=== PATIENT | female | born 1960 | race Caucasian/White ===

== ENCOUNTER 2018-08-09 05:58 | Emergency (ER) | payer OTHER ==
[~2018-08-09] VITALS: Ht 172.7 cm; Wt 57.6 kg
[~2018-08-09 05:58] MED LIST: ALPR0.5T PO; BISA5TAB4 PO; CELE200C PO; ESCITALOPRAM OXA5 M1 PO; FERR325T72 PO; FOLI1TAB16 PO; LAMO150T2 PO; LEVO250T7 PO; MULT1TAB90 PO; THIA100T22 PO; WARF10TA45 MC
--- NOTE | 2018-08-09 06:19 | PHYS DOC ---
Past Medical History Past Medical History: Alcoholism, Depression Additional Past Medical Histor: chronic pain Alcohol Use: Heavy Adult General Chief Complaint Chief Complaint: ALCOHOL INTOXICATION HPI HPI Patient is a 57-year-old female who arrives in the emergency department via EMS. She states that she lives alone, and went to get up to go to the bathroom but her left knee gave out. She gives conflicting answers if she fell or not and m ight of hit her head, she is uncertain. She appears intoxicated, smells of alcohol, and admits to drinking a fifth of vodka daily. She also takes pain medicine and possibly benzodiazepine as well, chronically. She denies any other pain at this time. She states that when her left knee gave out, she pushed her medical alert button, and EMS arrived, bringing the patient to the emergency department. The patient states that she just feels weak all over. She is unable to verbalize any other complaint. She was reportedly combative with EMS, and is somewhat labile at this time, but overall, cooperative. She does have wrappings on her legs bilaterally, there is a small wound on her right heel which she states is followed at the [place] [facility]. She is unable to provide any other meaningful history at this time. Review of Systems Review of Systems Constitutional: Denies fever or chills [] Eyes: Denies change in visual acuity, redness, or eye pain [] HENT: Denies nasal congestion or sore throat [] Respiratory: Denies cough or shortness of breath [] Cardiovascular: The patient denies any shortness of breath, chest pain, palpitations, or orthopnea[] GI: Denies abdominal pain, nausea, vomiting, bloody stools or diarrhea [] : Denies dysuria or hematuria [] Musculoskeletal: Denies back pain or joint pain [] Integument: Denies rash or skin lesions, other than as noted in HPI [] Neurologic: Denies headache, focal weakness or sensory changes [] Endocrine: Denies polyuria or polydipsia [] All other systems were reviewed and found to be within normal limits, except as documented in this note. Current Medications Current Medications Current Medications Medications (Trade) Dose Ordered Sig/Nilson Start Time Stop Time Status Last Admin Dose Admin Sodium Chloride 1,000 ml @ 100 mls/hr Q10H 08/09/18 06:30 08/09/18 16:29 08/09/18 07:32 100 MLS/HR Allergies Allergies Allergies Coded Allergies Type Severity Reaction Last Updated Verified disulfiram Allergy Intermediate 12/14/17 Yes Physical Exam Physical Exam PHYSICAL EXAM: CONSTITUTIONAL: Well developed, well nourished HEAD: normocephalic, atraumatic EENT: PERRL, EOMI. Conjunctivae normal color, sclerae non-icteric; moist mucous membranes. NECK: Supple, non-tender; no meningismus. LUNGS: Lungs CTA, breathing even and unlabored. Normal air movement. HEART: Regular rate and rhythm, no murmur CHEST: No deformity; non-tender ABDOMEN: The abdomen is soft, and non-tender, no masses or bruits. EXTREM: Normal ROM; no deformity, no calf tenderness. Normal pulses palpable in all extremities. There is no pedal edema. SKIN: No rash; no diaphoresis. There is a small wound on the medial aspect of the right heel, which is well dressed. There is no significant surrounding warmth or erythema. NEURO: Alert; mildly impaired cognition and mildly slurred speech, consistent with alcohol intoxication, CN's grossly intact; strength grossly intact without focal deficit. Specifically, Range of motion in the lower extremities bilaterally is normal. BACK: No CVA TTP. Current Patient Data Vital Signs Vital Signs Date Time Temp Pulse Resp B/P (MAP) Pulse Ox O2 Delivery O2 Flow Rate FiO2 08/09/18 06:00 98.8 81 20 128/84 (99) 97 Room Air 98.8 Lab Values Laboratory Tests Test 08/09/18 07:15 08/09/18 07:42 White Blood Count 8.5 x10^3/uL (4.0-11.0) Red Blood Count 5.17 x10^6/uL (3.50-5.40) Hemoglobin 15.1 g/dL (12.0-15.5) Hematocrit 46.9 % (36.0-47.0) Mean Corpuscular Volume 91 fL (79-100) Mean Corpuscular Hemoglobin 29 pg (25-35) Mean Corpuscular Hemoglobin Concent 32 g/dL (31-37) Red Cell Distribution Width 15.2 % (11.5-14.5) H Platelet Count 299 x10^3/uL (140-400) Neutrophils (%) (Auto) 59 % (31-73) Lymphocytes (%) (Auto) 35 % (24-48) Monocytes (%) (Auto) 5 % (0-9) Eosinophils (%) (Auto) 0 % (0-3) Basophils (%) (Auto) 0 % (0-3) Neutrophils # (Auto) 5.0 x10^3uL (1.8-7.7) Lymphocytes # (Auto) 3.0 x10^3/uL (1.0-4.8) Monocytes # (Auto) 0.5 x10^3/uL (0.0-1.1) Eosinophils # (Auto) 0.0 x10^3/uL (0.0-0.7) Basophils # (Auto) 0.0 x10^3/uL (0.0-0.2) Prothrombin Time 14.1 SEC (11.7-14.0) H Prothrombin Time INR 1.1 (0.8-1.1) Sodium Level 144 mmol/L (136-145) Potassium Level 4.0 mmol/L (3.5-5.1) Chloride Level 103 mmol/L (98-107) Carbon Dioxide Level 23 mmol/L (21-32) Anion Gap 18 (6-14) H Blood Urea Nitrogen 13 mg/dL (7-20) Creatinine 0.7 mg/dL (0.6-1.0) Estimated GFR (Cockcroft-Gault) 85.6 BUN/Creatinine Ratio 19 (6-20) Glucose Level 98 mg/dL (70-99) Calcium Level 9.4 mg/dL (8.5-10.1) Magnesium Level 2.5 mg/dL (1.8-2.4) H Total Bilirubin 0.2 mg/dL (0.2-1.0) Aspartate Amino Transferase (AST) 24 U/L (15-37) Alanine Aminotransferase (ALT) 24 U/L (14-59) Alkaline Phosphatase 180 U/L (46-116) H Troponin I Quantitative < 0.017 ng/mL (0.000-0.055) LR-Dfc-I-Type Natriuretic Peptide 19 pg/mL (0-124) Total Protein 9.0 g/dL (6.4-8.2) H Albumin 4.4 g/dL (3.4-5.0) Albumin/Globulin Ratio 1.0 (1.0-1.7) Thyroid Stimulating Hormone (TSH) 0.673 uIU/mL (0.358-3.74) Free Thyroxine 1.00 ng/dL (0.76-1.46) Ethyl Alcohol Level 414 mg/dL (0-10) *H Urine Collection Type Unknown Urine Color Yellow Urine Clarity Clear Urine pH 5.5 Urine Specific [place] 1.010 Urine Protein Negative mg/dL (NEG-TRACE) Urine Glucose (UA) Negative mg/dL (NEG) Urine Ketones (Stick) Negative mg/dL (NEG) Urine Blood Negative (NEG) Urine Nitrite Negative (NEG) Urine Bilirubin Negative (NEG) Urine Urobilinogen Dipstick 0.2 mg/dL (0.2 mg/dL) Urine Leukocyte Esterase Trace (NEG) Urine RBC 0 /HPF (0-2) Urine WBC 1-4 /HPF (0-4) Urine Squamous Epithelial Cells Few /LPF Urine Bacteria 0 /HPF (0-FEW) Urine Opiates Screen Neg (NEG) Urine Methadone Screen Neg (NEG) Urine Barbiturates Neg (NEG) Urine Phencyclidine Screen Neg (NEG) Urine Amphetamine/Methamphetamine Pos (NEG) Urine Benzodiazepines Screen Neg (NEG) Urine Cocaine Screen Neg (NEG) Urine Cannabinoids Screen Neg (NEG) Urine Ethyl Alcohol Pos (NEG) Laboratory Tests 08/09/18 07:15 Laboratory Tests 08/09/18 07:15 EKG EKG [Sinus rhythm a rate of 86 bpm, left axis deviation, normal intervals. There are no acute ischemic ST/T changes.] Radiology/Procedures Radiology/Procedures [] Course & Med Decision Making Course & Med Decision Making Pertinent Lab studies reviewed. (See chart for details) [12:50 PM:] The patient's condition has improved significantly. Her mental status is much more coherent, she is cooperative and ambulatory at her baseline. She states she has a history of alcoholism in the past but had been sober for 15 years, but recently had a relapse. She states she goes to AA meetings and I encouraged her to continue pursuing resources to her sobriety, including [facility] other resources available to her for help with her alcoholism. I discussed importance of close follow-up and return precautions in detail. Dragon Disclaimer Dragon Disclaimer This electronic medical record was generated, in whole or in part, using a voice recognition dictation system. Departure Departure Impression: Primary Impression: Acute alcohol intoxication Additional Impression: Alcoholism Disposition: 01 HOME, SELF-CARE Condition: STABLE Referrals: UNKNOWN PCP NAME (PCP) Patient Instructions: Alcohol Intoxication, Alcohol Problems, Chronic Alcoh olism Problem Qualifiers RAIN RACHEL MD August 09, 2018 06:19
[2018-08-09] MEDS ORDERED: IV NORMAL SALINE 1000ML BAG 1,000 ML IV SCH (06:30)
--- NOTE | 2018-08-09 07:25 | EKG ---
[facility] [address] [place] [address] Test Date: 2018-08-09 Test Time: 07:13:44 Pat Name: EVA VICENTE Department: Room: Gender: F Night Filler: : 1960 Requested By: RAIN RACHEL Order Number: [id number] Reading MD: De Moreno Measurements Intervals [place] Rate: 85 P: 36 [place]: 158 QRS: -23 QRSD: 88 T: 38 QT: 346 QTc: 416 Interpretive Statements SINUS RHYTHM LEFTWARD AXIS QRS(T) CONTOUR ABNORMALITY CONSISTENT WITH POSSIBLE OLD ANTEROSEPTAL INFARCT Electronically Signed On 08-11-2018 9:52:07 CDT by De Moreno
[2018-08-09 07:38] LABS: BASO % 0 % (0-3); EOS % 0 % (0-3); HEMATOCRIT 46.9 % (36.0-47.0); HEMOGLOBIN 15.1 g/dL (12.0-15.5); LYMPH % 35 % (24-48); MEAN CORPUSCULAR HEMOGLOBIN 29 pg (25-35); MEAN CORPUSCULAR HGB CONC 32 g/dL (31-37); MEAN CORPUSCULAR VOLUME 91 fL (79-100); MONO # 0.5 x10^3/uL (0.0-1.1); MONO % 5 % (0-9); NEUT % 59 % (31-73); PLATELET COUNT 299 x10^3/uL (140-400); RED BLOOD COUNT 5.17 x10^6/uL (3.50-5.40); RED CELL DISTRIBUTION WIDTH 15.2 % (11.5-14.5); WHITE BLOOD COUNT 8.5 x10^3/uL (4.0-11.0)
[2018-08-09 07:41] LABS: CALCIUM 9.4 mg/dL (8.5-10.1); CREATININE 0.7 mg/dL (0.6-1.0); GFR 85.6
[2018-08-09 07:52] LABS: ALBUMIN 4.4 g/dL (3.4-5.0); MAGNESIUM 2.5 mg/dL (1.8-2.4); TOTAL BILIRUBIN 0.2 mg/dL (0.2-1.0)
[2018-08-09 07:55] LABS: THYROID STIM HORMONE (TSH) 0.673 uIU/mL (0.358-3.74)
[2018-08-09 07:57] LABS: PROTHROMBIN TIME PATIENT 14.1 SEC (11.7-14.0)
[2018-08-09 07:59] LABS: BILIRUBIN,URINE NEGATIVE (NEG); CLARITY,URINE CLEAR; COLOR,URINE YELLOW; NITRITE,URINE NEGATIVE (NEG); PH,URINE 5.5; PROTEIN,URINE NEGATIVE (NEG-TRACE); UROBILINOGEN,URINE 0.2 mg/dL (0.2 mg/dL)
[2018-08-09 08:01] LABS: BARBITURATES NEG (NEG); BENZODIAZEPINES NEG (NEG); CANNABINOIDS NEG (NEG); COCAINE NEG (NEG); METHADONE NEG (NEG); OPIATES NEG (NEG); PHENCYCLIDINE NEG (NEG)
[2018-08-09 08:02] LABS: AMPHETAMINE/METHAMPHETAMINE POS (NEG)
[2018-08-09 08:07] LABS: BACTERIA,URINE 0 /HPF (0-FEW); RBC,URINE 0 /HPF (0-2); SQUAMOUS EPITHELIAL CELL,UR FEW /LPF
[2018-08-09 12:30] VITALS: BP 137/77
== END 2018-08-09 13:23 | disposition home or self-care (01) ==
LOC: ER 05:58
DX: F10.229 Alcohol dependence with intoxication, unspecified (principal); Y90.8 Blood alcohol level of 240 mg/100 ml or more; S90.921A Unspecified superficial injury of right foot, initial encounter; R47.81 Slurred speech; G89.29 Other chronic pain; F32.9 Major depressive disorder, single episode, unspecified; Z88.8 Allergy status to other drugs, medicaments and biological substances; W18.39XA Other fall on same level, initial encounter; Y93.89 Activity, other specified; Y92.002 Bathroom of unspecified non-institutional (private) residence as the place of occurrence of the external cause; Y99.8 Other external cause status
CPT/HCPCS: 36415; 80053; 80307; 81001; 83735; 83880; 84439; 84443; 84484; 85025; 85610; 87086; 93005; 99285; G0480; J7030